=== PATIENT | female | born 1945 | race Caucasian/White ===

== ENCOUNTER 2016-08-11 22:14 | Inpatient (IN) ==
[2016-08-11] MEDS ORDERED: Ipratropium/Albuterol Neb 3 ML IH ONE (22:34)
[2016-08-11] MEDS ORDERED: methylPREDNISolone 125 MG/2 ML VIAL IVP ONE (22:34)
[2016-08-11] MEDS ORDERED: Albuterol 2.5 MG/3 ML NEBULIZER IH ONE (22:34)
--- NOTE | 2016-08-11 22:38 | Emergency Department Note ---
Disposition Clinical Impression: COPD exacerbation Pneumonia Qualifiers: Pneumonia type: due to unspecified organism Laterality: bilateral Lung location : lower lobe of lung Qualified Code(s): J18.9 - Pneumonia, unspecified organism Disposition: Admitted As Inpatient Condition: Good Referrals: Nay Segundo CNP [Primary Care Provider] - Forms: ED Satisfaction Letter Time of Disposition: 00:02 SOB HPI - General Chief Complaint: ED Shortness of Breath/Dyspnea Stated Complaint: JOSE ALEJANDRO Time Seen by Provider: 08/11/16 22:35 Source: patient Mode of arrival: wheelchair Limitations: physical limitation Nursing Notes Reviewed: Yes Vital Signs Reviewed: Yes - History of Present Illness 71-year-old white female with history of end-stage COPD on home oxygen with gradually increasing shortness of breath since Saturday. She has a increased cough. It is nonproductive. She has felt feverish, no documented elevated temperature. No chest pain. No leg swelling. Pt Subjective Complaint: shortness of breath, cough Onset (ago): day(s) Context: recent illness (4) Severity: severe Consistency/Duration: constant, gradually worsening Improves with: oxygen, rest Worsens with: lying flat, coughing Known history of: COPD Associated symptoms: Reports: denies other symptoms Treatment prior to arrival: oxygen, bronchodilator Cough present: Yes Cough Description: Involuntary Cough Frequency: Intermittent Sputum production: No Sputum Amount: None - Related Data Home oxygen amount: 2 liters Home Medications Medication Instructions Recorded Confirmed Albuterol Neb [Proventil Neb] 2.5 mg IH Q4HR 08/11/16 08/11/16 Albuterol Sulfate [Ventolin Hfa] 18 gm IH QID 08/11/16 08/11/16 Furosemide [Lasix] 10 mg PO DAILY 08/11/16 08/11/16 LORazepam [Ativan] 0.5 mg PO BID 08/11/16 08/11/16 Tiotropium [Spiriva] 18 mcg IH DAILY 08/11/16 08/11/16 Umeclidinium [place] [Incruse 62.5 mcg IH DAILY 08/11/16 08/11/16 Ellipta] Allergies Allergy/AdvReac Type Severity Reaction Status Date / Time guaifenesin [From Mucinex] AdvReac Difficulty Verified 08/11/16 22:15 Breathing All systems ED: reviewed and negative except as stated. Constitutional: Reports: chills. Denies: fever ENT ED: Denies: ear pain, throat pain Cardiovascular: Denies: chest pain Respiratory: Reports: cough, dyspnea, wheezes Gastrointestinal: Denies: abdominal pain, nausea, vomiting Genitourinary: Denies: urgency, dysuria, frequency Musculoskeletal: Denies: back pain Past Medical History - Past Medical History Medical history: Reports: arthritis, CHF, COPD Psychiatric history: Reports: anxiety, depression - Social History Smoking Status: Former smoker Smokeless Tobacco Status: No Alcohol use: Reports: none Drug use: Reports: none Physical Exam - General Limitations: physical limitation General appearance: alert, in distress (Moderately dyspneic), cachectic - Head Head exam: atraumatic, normocephalic - Eye Eye exam: Present: PERRL, EOMI. Absent: scleral icterus, conjunctival injection - ENT ENT exam: normal oropharynx, mucous membranes moist, TM's normal bilaterally - Neck Neck exam: Present: normal inspection, full ROM, trachea midline. Absent: lymphadenopathy - Respiratory Respiratory exam: Present: respiratory distress (Moderate), wheezes (Moderate bilateral expiratory), accessory muscle use, prolonged expiratory phase - Cardiovascular Cardiovascular exam: Present: regular rate, tachycardia. Absent: systolic murmur, diastolic murmur - Abdominal Exam Abdominal exam: Present: soft, Non-Tender. Absent: organomegaly, mass - Extremities Exam Extremities exam: Present: normal inspection, full ROM, normal capillary refill. Absent: pedal edema, calf tenderness - Neurological Exam Neurological exam: Present: alert, oriented X3, normal gait - Psychiatric Psychiatric exam: Present: agitated, anxious - Skin Skin exam: Present: warm, dry, intact, normal color. Absent: cyanosis, diaphoresis Course Vital Signs Temperature 98.8 F 08/11/16 22:20 Pulse Rate 110 08/11/16 22:20 Respiratory Rate 22 08/11/16 22:20 Blood Pressure 135/74 08/11/16 22:20 O2 Sat by Pulse Oximetry 97 08/11/16 22:20 Temperature 98.8 F 08/12/16 00:09 Pulse Rate 118 08/12/16 00:09 Respiratory Rate 28 08/12/16 00:09 Blood Pressure 158/70 08/12/16 00:09 O2 Sat by Pulse Oximetry 94 08/12/16 00:09 Oxygen Delivery Oxygen Delivery Nasal Cannula Shortness of Breath/Dyspnea - Differential Diagnosis Likely: acute exacerbation of chronic obstructive airways disease, congestive heart failure, pneumonia, asthma with exacerbation, pulmonary embolism, pneumothorax, arrhythmia - Lab Data Lab results reviewed: Yes I reviewed the patient's lab results. Result diagrams: 08/11/16 22:48 08/11/16 22:48 Lab Results 08/11/16 08/11/16 08/11/16 Range/Units 22:48 22:48 22:48 WBC 17.6 H (4.3-11.1) K/mcL RBC 4.83 (3.82-4.97) M/mcL Hgb 14.3 (11.5-15.4) g/dL Hct 45.6 H (35.3-44.9) % MCV 94.4 (83.0-100.0) fL MCH 29.6 (28.0-33.3) pg MCHC 31.4 L (31.6-35.5) g/dL RDW 13.3 (11.5-14.5) % Plt Count 314 (140-400) K/mcL MPV 10.3 (9.4-12.4) fL Immature Gran % 0.5 (0-4) % Seg Neutrophils % 81.1 % Lymphocytes % 7.2 % Monocytes % 10.6 % Eosinophils % 0.4 % Basophils % 0.2 % Neutrophils # 14.3 H (1.6-8.9) K/mcL Lymphocytes # 1.3 (0.6-4.6) K/mcL Monocytes # 1.9 H (0.0-1.3) K/mcL Eosinophils # 0.1 (0.0-0.6) K/mcL Basophils # 0.0 (0.0-0.2) K/mcL Sodium 144 (136-145) mEq/L Potassium 4.1 (3.5-4.5) mEq/L Chloride 99 (98-109) mEq/L Carbon Dioxide 31 H (19-29) mEq/L BUN 12 (7-20) mg/dL Creatinine 0.69 (0.57-1.11) mg/dL Est GFR ( Amer) > 60 (> 60) Est GFR (Non-Af Amer) > 60 (> 60) BUN/Creatinine Ratio 17 (6-26) Glucose 106 H (70-99) mg/dL Calculated Osmolality 298 (280-300) Calcium 9.8 (8.6-10.8) mg/dL Total Bilirubin 0.4 (0.2-1.2) mg/dL AST 12 (5-34) Units/L ALT 14 (0-55) Units/L Alkaline Phosphatase 73 (38-126) Units/L Troponin I 0.00 (0-0.03) ng/mL B-Natriuretic Peptide (0-100) pg/mL Serum Total Protein 6.9 (6.0-8.3) g/dL Albumin 3.2 L (3.5-5.0) g/dL Globulin 3.7 H (2.4-3.5) g/dL Albumin/Globulin Ratio 0.9 L (1.1-2.2) 08/11/16 Range/Units 22:48 WBC (4.3-11.1) K/mcL RBC (3.82-4.97) M/mcL Hgb (11.5-15.4) g/dL Hct (35.3-44.9) % MCV (83.0-100.0) fL MCH (28.0-33.3) pg MCHC (31.6-35.5) g/dL RDW (11.5-14.5) % Plt Count (140-400) K/mcL MPV (9.4-12.4) fL Immature Gran % (0-4) % Seg Neutrophils % % Lymphocytes % % Monocytes % % Eosinophils % % Basophils % % Neutrophils # (1.6-8.9) K/mcL Lymphocytes # (0.6-4.6) K/mcL Monocytes # (0.0-1.3) K/mcL Eosinophils # (0.0-0.6) K/mcL Basophils # (0.0-0.2) K/mcL Sodium (136-145) mEq/L Potassium (3.5-4.5) mEq/L Chloride (98-109) mEq/L Carbon Dioxide (19-29) mEq/L BUN (7-20) mg/dL Creatinine (0.57-1.11) mg/dL Est GFR ( Amer) (> 60) Est GFR (Non-Af Amer) (> 60) BUN/Creatinine Ratio (6-26) Glucose (70-99) mg/dL Calculated Osmolality (280-300) Calcium (8.6-10.8) mg/dL Total Bilirubin (0.2-1.2) mg/dL AST (5-34) Units/L ALT (0-55) Units/L Alkaline Phosphatase (38-126) Units/L Troponin I (0-0.03) ng/mL B-Natriuretic Peptide 28 (0-100) pg/mL Serum Total Protein (6.0-8.3) g/dL Albumin (3.5-5.0) g/dL Globulin (2.4-3.5) g/dL Albumin/Globulin Ratio (1.1-2.2) - Radiology Data Radiology results reviewed: Yes I reviewed the patient's radiology results. Impressions Chest X-Ray 08/11/16 22:34 IMPRESSION: Severe apical predominant emphysema with superimposed mild bibasilar airspace disease consistent with pneumonia. D/ / Jose Quezada MD / Jose Quezada MD Interpreting Provider: Jose Quezada MD - EKG Data EKG attestation: Yes I reviewed and interpreted this EKG. EKG results narrative: His tachycardia, rate of 118, short HI interval, nonspecific ST-T changes. Poor baseline, extensive artifact. Rhythm strip shows a sinus tachycardia with a rate of 118, short P irritable bladder 6 ms, QRS 97 ms with no other ectopy as interpreted by me. This is compared to a tracing dated 01/30/14, no significant change.
[2016-08-11 22:57] LABS: Basophils % 0.2 %; Eosinophils # 0.1 K/mcL (0.0-0.6); Eosinophils % 0.4 %; Hematocrit 45.6 % (35.3-44.9); Hemoglobin 14.3 g/dL (11.5-15.4); Immature Granulocytes % 0.5 % (0-4); Lymphocytes # 1.3 K/mcL (0.6-4.6); Lymphocytes % 7.2 %; Mean Corpuscular HGB Conc 31.4 g/dL (31.6-35.5); Mean Corpuscular Hemoglobin 29.6 pg (28.0-33.3); Mean Corpuscular Volume 94.4 fL (83.0-100.0); Mean Platelet Volume 10.3 fL (9.4-12.4); Monocytes # 1.9 K/mcL (0.0-1.3); Monocytes % 10.6 %; Neutrophils # 14.3 K/mcL (1.6-8.9); Platelet Count 314 K/mcL (140-400); Red Blood Count 4.83 M/mcL (3.82-4.97); Red Cell Distribution Width 13.3 % (11.5-14.5); Segmented Neutrophils % 81.1 %
[2016-08-11 23:15] LABS: Alanine Aminotransferase 14 Units/L (0-55); Albumin 3.2 g/dL (3.5-5.0); Albumin/Globulin Ratio 0.9 (1.1-2.2); Alkaline Phosphatase 73 Units/L (38-126); Aspartate Amino Transferase 12 Units/L (5-34); BUN/Creatinine Ratio 17 (6-26); Bilirubin,Total 0.4 mg/dL (0.2-1.2); Blood Urea Nitrogen 12 mg/dL (7-20); Calcium 9.8 mg/dL (8.6-10.8); Carbon Dioxide 31 mEq/L (19-29); Chloride 99 mEq/L (98-109); Globulin 3.7 g/dL (2.4-3.5); Glucose 106 mg/dL (70-99); Osmolality,Calculated 298 (280-300); Potassium 4.1 mEq/L (3.5-4.5); Sodium 144 mEq/L (136-145); Total Protein 6.9 g/dL (6.0-8.3); eGFR For African Americans > 60 (> 60); eGFR For Non-African Americans > 60 (> 60)
[2016-08-12] MEDS ORDERED: Acetaminophen 325 MG TABLET PO ONE (00:24)
[2016-08-12] MEDS ORDERED: Azithromycin 500 MG in D5% in Water 250 ML IVPB SCH ×2 (03:00→06:14)
[2016-08-12] MEDS ORDERED: Albuterol 2.5 MG/3 ML NEBULIZER IH SCH ×2 (04:00→08:00)
[2016-08-12] MEDS ORDERED: Naloxone 0.4 MG/ML INJ IVP PRN (06:14)
[2016-08-12] MEDS ORDERED: MethylPREDNISolone 40 MG/ML VIAL IVP SCH (06:14)
[2016-08-12] MEDS: *HR* Enoxaparin 40 MG/0.4 ML SYRINGE SQ SCH (06:41)
[2016-08-12] MEDS: Tiotropium 18 MCG inhalation IH SCH (07:47)
[2016-08-12] MEDS ORDERED: predniSONE 20 MG TABLET PO SCH (09:00)
[2016-08-12] MEDS ORDERED: Furosemide 20 MG TABLET PO SCH (09:00)
[2016-08-12] MEDS ORDERED: *HR* LORazepam 0.5 MG TABLET PO SCH (09:00)
[2016-08-12] MEDS ORDERED: Tiotropium 18 MCG inhalation IH SCH (09:00)
[2016-08-12] MEDS: Acetaminophen 325 MG TABLET PO PRN ×2 (09:15→20:22)
[2016-08-12] MEDS: *HR* LORazepam 0.5 MG TABLET PO SCH ×2 (09:16→20:17)
[2016-08-12] MEDS: Furosemide 20 MG TABLET PO SCH (09:16)
[2016-08-12] MEDS: predniSONE 20 MG TABLET PO SCH (09:16)
[2016-08-12] MEDS: Ipratropium/Albuterol Neb 3 ML IH SCH ×2 (10:38→12:12)
--- NOTE | 2016-08-12 10:58 | Internal Med History&Physical ---
Date of Encounter: 08/12/16 Time of Encounter: 10:15 Assessment and Plan (1) Pneumonia Current visit: Yes Status: Acute She has been started on Rocephin and Zithromax with prednisone. Lactobacillus will be started. Qualifiers: Pneumonia type: due to unspecified organism Laterality: bilateral Lung location: lower lobe of lung Qualified Code(s): J18.9 - Pneumonia, unspecified organism (2) Hypertension Current visit: Yes Status: Chronic Blood pressure is satisfactory on present regimen. Qualifiers: Hypertension type: essential hypertension Qualified Code(s): I10 - Essential (primary) hypertension Internal Medicine - H&P: HPI Chief complaint: Dyspnea Admitted From: Home Plans for Post Hospital Care: Home History of present illness: Ms. Delgado is a 71 year old female who came to emergency room stating she had increasing dyspnea over the past 3 days. There was minimal cough with little productivity. She had a heaviness feeling in her chest. She came to emergency room and was evaluated and felt to have bibasilar pneumonia with exacerbation of COPD. She was admitted to [facility] floor for ongoing care needs. She states her breathing seems slightly improved at the present time. Her respiratory history is significant for having smoked from age [age] never exceeding one half pack per day. She has a diagnosis of COPD and wears oxygen 24/7 at home. She states PFTs were done approximately August 2013. She has not seen a medical field representative in over 2 years. She has not been tested for sleep apnea. She had right lower lung lobectomy in 1974 for bullous emphysema. Past Med Surg Social Fam HX - Past Medical History Medical history: arthritis, CHF, COPD Psychiatric history: anxiety, depression - Social History Smoking Status: Former smoker Smokeless Tobacco Status: No Alcohol use: none Drug use: none Internal Medicine - H&P: Meds Albuterol Neb [Proventil Neb] 2.5 mg IH Q4HR 08/11/16 [History] Albuterol Sulfate [Ventolin Hfa] 18 gm IH QID 08/11/16 [History] Furosemide [Lasix] 10 mg PO DAILY 08/11/16 [History] LORazepam [Ativan] 0.5 mg PO BID 08/11/16 [History] Tiotropium [Spiriva] 18 mcg IH DAILY 08/11/16 [History] Umeclidinium [place] [Incruse Ellipta] 62.5 mcg IH DAILY 08/11/16 [History] Allergies guaifenesin [From Mucinex] Adverse Reaction (Verified 08/12/16 01:47) Difficulty Breathing All Systems PM: A 10-system review of systems was performed and is negative for pertinent findings except as documented above in the HPI. Review of systems: Gen.: Her weight has been stable since the January 2014 hospitalization at approximately 55 kg Cardiovascular: She has hypertension but denies [place] heart failure angina DVT or pulmonary embolus Respiratory: As per history of present illness GI: She denies disorders of her liver gallbladder or exocrine pancreas : She denies hematuria dysuria or kidney stones Neurologic: She denies large distribution strokes or seizures Endocrine: She denies diabetes thyroid disease or hyperlipidemia Hematology/oncology, she denies blood disorders cancers or anemia Psychiatric: She has occasional feelings of anxiety but denies depression or other mental health issues [place] skeletal: She has osteoporosis and chronic low back pain. She denies gout - Constitutional Vitals: Temp Pulse Resp BP Pulse Ox 99.0 F 100 16 106/59 95 08/12/16 10:17 08/12/16 10:17 08/12/16 10:17 08/12/16 10:17 08/12/16 10:17 Exam: Gen.: She is a well-developed well-nourished female who appears in minimal respiratory distress at present time. HEENT: Head is atraumatic and normocephalic. Eyes: EOMI. There is no scleral icterus. Mouth: Mucosa is moist. Neck: Supple and nontender. There is no thyromegaly or adenopathy noted. Heart: Regular without murmurs gallops or ectopics Lungs: She has diminished breath sounds diffusely. She has egophony in the posterior lung potts at the bases bilaterally. No expiratory wheezing is heard Abdomen: Soft and nontender. No masses or guarding are noted. Extremities: There is no cyanosis edema or clubbing noted. Dorsalis pedis and posttibial pulses are 1-2 over 2 bilaterally. Neurologic: Mental status: She is talkative and a good historian. Cranial nerves: Smile is symmetric. Forehead wrinkles bilaterally. Tongue protrudes midline. EOMI. Motor: There is no pronator drift. Cerebellar: Finger to nose is intact bilaterally. Skin: Warm and dry Internal Med - H&P Results - Labs CBC & Chem 7: 08/11/16 22:48 08/11/16 22:48
[2016-08-12] MEDS: Albuterol 2.5 MG/3 ML NEBULIZER IH PRN ×2 (12:59→17:12)
[2016-08-12] MEDS: Budesonide/Formoterol 160/4.5 MDI IH SCH (21:58)
[2016-08-13] MEDS: Albuterol 2.5 MG/3 ML NEBULIZER IH PRN ×5 (01:35→21:02)
[2016-08-13] MEDS: Azithromycin 500 MG in D5% in Water 250 ML IVPB SCH (02:56)
[2016-08-13 05:01] LABS: Basophils % 0.1 %; Eosinophils % 0.2 %; Hematocrit 40.3 % (35.3-44.9); Hemoglobin 12.4 g/dL (11.5-15.4); Immature Granulocytes % 0.3 % (0-4); Lymphocytes # 0.9 K/mcL (0.6-4.6); Lymphocytes % 7.4 %; Mean Corpuscular HGB Conc 30.8 g/dL (31.6-35.5); Mean Corpuscular Hemoglobin 29.4 pg (28.0-33.3); Mean Corpuscular Volume 95.5 fL (83.0-100.0); Monocytes # 1.1 K/mcL (0.0-1.3); Monocytes % 8.7 %; Neutrophils # 10.2 K/mcL (1.6-8.9); Platelet Count 306 K/mcL (140-400); Red Blood Count 4.22 M/mcL (3.82-4.97); Red Cell Distribution Width 13.3 % (11.5-14.5); Segmented Neutrophils % 83.3 %
[2016-08-13] MEDS: *HR* Enoxaparin 40 MG/0.4 ML SYRINGE SQ SCH (06:20)
[2016-08-13] MEDS: Tiotropium 18 MCG inhalation IH SCH (07:11)
[2016-08-13] MEDS: Budesonide/Formoterol 160/4.5 MDI IH SCH ×2 (07:11→21:02)
[2016-08-13] MEDS: *HR* LORazepam 0.5 MG TABLET PO SCH ×2 (08:40→20:15)
[2016-08-13] MEDS: Furosemide 20 MG TABLET PO SCH (08:40)
[2016-08-13] MEDS: Acetaminophen 325 MG TABLET PO PRN ×2 (08:40→18:44)
[2016-08-13] MEDS: predniSONE 20 MG TABLET PO SCH (08:40)
--- NOTE | 2016-08-13 09:53 | Electrocardiograph Report ---
[address] [place], [place] [address] Test Date: 2016-08-11 Pat Name: Lexi Delgado Department: [id number] Room: [facility] Gender: F Street [employer] Installer: Kiran : 1945 Requested By: Keith Vazquez Order Number: [id number] Reading MD: Ruddy Matthew MD Measurements Intervals [place] Rate: 118 P: -22 W[place]: 106 QRS: 18 QRSD: 97 T: -2 QT: 304 QTc: 374 Interpretive Statements SINUS TACHYCARDIA WITH SHORT [place] INTERVAL INDETERMINATE AXIS BASELINE ARTIFACT COMPLICATES ACCURATE INTERPRETATION Electronically Signed On 08-13-2016 9:51:19 EDT by Ruddy Matthew MD
--- NOTE | 2016-08-13 10:15 | Internal Med Progress Note ---
Date of Encounter: 08/13/16 Time of Encounter: 10:05 - Assessment and plan (1) Pneumonia Current Visit: Yes Status: Acute Assessment and plan: August 13. Continue Rocephin and Zithromax with lactobacillus. We will discontinue prednisone. Recheck labs in a.m. Qualifiers: Pneumonia type: due to unspecified organism Laterality: bilateral Lung location: lower lobe of lung Qualified Code(s): J18.9 - Pneumonia, unspecified organism (2) Hypertension Current Visit: Yes Status: Chronic Assessment and plan: August 13. Blood pressure is satisfactory Qualifiers: Hypertension type: essential hypertension Qualified Code(s): I10 - Essential (primary) hypertension - Subjective Interval history: August 13. She has no new complaints. She states she had a "rough night" breathing - Constitutional Vitals: Temp Pulse Resp BP Pulse Ox 98.4 F 100 18 125/79 93 08/13/16 06:56 08/13/16 06:56 08/13/16 06:56 08/13/16 06:56 08/13/16 07:10 Exam: She is resting comfortably in bed and appears in no acute distress. Affect is bright and cheerful. I reviewed her medications and lab results. Internal Medicine: Result - Labs CBC & Chem 7: 08/13/16 04:25 08/11/16 22:48 Labs: Short CBC 08/13/16 Range/Units 04:25 WBC 12.2 H (4.3-11.1) K/mcL Hgb 12.4 D (11.5-15.4) g/dL Hct 40.3 (35.3-44.9) % Plt Count 306 (140-400) K/mcL Neutrophils # 10.2 H (1.6-8.9) K/mcL Consult Discharge Plan - Plan Referrals: Nay Segundo, RECORDING ENGINEER [Primary Care Provider] - 1 week
[2016-08-14] MEDS: Azithromycin 500 MG in D5% in Water 250 ML IVPB SCH (03:11)
[2016-08-14] MEDS: Acetaminophen 325 MG TABLET PO PRN ×2 (03:19→09:12)
[2016-08-14 05:49] LABS: Basophils % 0.3 %; Eosinophils # 0.1 K/mcL (0.0-0.6); Eosinophils % 1.1 %; Hemoglobin 13.2 g/dL (11.5-15.4); Immature Granulocytes % 0.4 % (0-4); Lymphocytes # 1.5 K/mcL (0.6-4.6); Lymphocytes % 13.8 %; Mean Corpuscular HGB Conc 30.7 g/dL (31.6-35.5); Mean Corpuscular Hemoglobin 29.6 pg (28.0-33.3); Mean Corpuscular Volume 96.4 fL (83.0-100.0); Monocytes # 1.2 K/mcL (0.0-1.3); Neutrophils # 7.7 K/mcL (1.6-8.9); Platelet Count 337 K/mcL (140-400); Red Blood Count 4.46 M/mcL (3.82-4.97); Red Cell Distribution Width 13.4 % (11.5-14.5); Segmented Neutrophils % 73.4 %
[2016-08-14] MEDS: *HR* Enoxaparin 40 MG/0.4 ML SYRINGE SQ SCH (06:21)
[2016-08-14 06:52] VITALS: BP 170/82
[2016-08-14] MEDS: *HR* LORazepam 0.5 MG TABLET PO SCH (09:05)
[2016-08-14] MEDS: Furosemide 20 MG TABLET PO SCH (09:05)
[2016-08-14] MEDS: Tiotropium 18 MCG inhalation IH SCH (09:51)
[2016-08-14] MEDS: Budesonide/Formoterol 160/4.5 MDI IH SCH (09:51)
--- NOTE | 2016-08-14 10:10 | Discharge Summary ---
Date of Encounter: 08/14/16 Time of Encounter: 10:00 - Discharge Diagnosis (1) Pneumonia Priority: Primary Status: Acute Qualifiers: Pneumonia type: due to unspecified organism Laterality: bilateral Lung location: lower lobe of lung Qualified Code(s): J18.9 - Pneumonia, unspecified organism (2) Hypertension Priority: Secondary Status: Chronic Qualifiers: Hypertension type: essential hypertension Qualified Code(s): I10 - Essential (primary) hypertension - Discharge Medications Prescriptions: Cefuroxime PO [Ceftin] 500 mg PO Q12HR #8 tablet Azithromycin [Zithromax] 250 mg PO DAILY #4 tablet Lactobacillus [Culturelle] 1 each PO BID #8 cap.sprink Home Medications: Albuterol Neb [Proventil Neb] 2.5 mg IH Q4HR 08/11/16 [History] Albuterol Sulfate [Ventolin Hfa] 18 gm IH QID 08/11/16 [History] Furosemide [Lasix] 10 mg PO DAILY 08/11/16 [History] LORazepam [Ativan] 0.5 mg PO BID 08/11/16 [History] Tiotropium [Spiriva] 18 mcg IH DAILY 08/11/16 [History] Umeclidinium [place] [Incruse Ellipta] 62.5 mcg IH DAILY 08/11/16 [History] Azithromycin [Zithromax] 250 mg PO DAILY #4 tablet 08/14/16 [Rx] Cefuroxime PO [Ceftin] 500 mg PO Q12HR #8 tablet 08/14/16 [Rx] Lactobacillus [Culturelle] 1 each PO BID #8 cap.sprink 08/14/16 [Rx] Allergies/Adverse Reactions: Allergies guaifenesin [From Mucinex] Adverse Reaction (Verified 08/12/16 01:47) Difficulty Breathing Date of admission: 08/13/16 10:49 Primary care physician: Nay Segundo CNP Consults: 08/14/16 07:48 Consult to Security Tech [CONS] Routine Reason for SW Consult: D/C planing - HH; passport; MOW referral - Patient Status Disposition: Home, Self-Care Condition: Good Overall status at discharge: patient is progressing back to baseline - Discharge Instructions Follow Up With: Nay Segundo CNP [Primary Care Provider] - 1 week - Diet and Activity Activity: resume usual activities as tolerated, wear oxygen at all times Diet: advance to your usual diet Hospital course: Ms. Delgado is a 71 year old female who came to emergency room stating she had increasing dyspnea over the past 3 days. There was minimal cough with little productivity. She had a heaviness feeling in her chest. She came to emergency room and was evaluated and felt to have bibasilar pneumonia with exacerbation of COPD. She was admitted to [facility] for ongoing care needs. Initial orders were written by the emergency room physician. I saw her on August 12 and performed a history and physical. She was started on Rocephin and Zithromax. Lactobacillus was given. She was initially given prednisone but this was discontinued on August 13. She had clinical improvement with normalization of WBC and resolution of the left shift by the day of discharge. Her breathing had returned to baseline when I saw her on August 14. She felt she was stable for discharge home. She will continue with antibiotic and probiotic for 4 additional days at discharge. She will follow with her PCP within one week. She has oxygen at home. - Time Spent with Patient Total time spent providing and/or coordinating discharge services: - Constitutional Vitals: Temp Pulse Resp BP Pulse Ox 98.9 F 102 28 170/82 88 08/14/16 06:51 08/14/16 07:29 08/14/16 07:29 08/14/16 06:51 08/14/16 07:29
== END 2016-08-14 11:46 | disposition home or self-care (01) | DRG 190 ==
LOC: EMEROOPIK 22:14 → INPPIK 22:14
PROVIDERS: ADMIT Internal Medicine; ATTEND Internal Medicine